=== PATIENT | male | born 1990 | race African-American/Black ===

== ENCOUNTER 2024-01-02 09:02 | Emergency (ER) | payer SELFPAY ==
[2024-01-02 09:30] VITALS: BP 110/70; PULSE 78; RESP 18; TEMP 98; BMI 25.8
[2024-01-02] MEDS ORDERED: ACETAMINOPHEN 325 MG TABLET (FP) ONE (12:07)
[2024-01-02] MEDS: ACETAMINOPHEN 325 MG TABLET (FP) PO ONE (12:10)
== END 2024-01-02 13:27 | disposition home or self-care (01) ==
LOC: JER 09:02
PROC: 2W3FX1Z Immobilization of Left Hand using Splint (ICD-10-PCS; principal; 2024-01-02)
DX: S60.222A Contusion of left hand, initial encounter (principal); S50.311A Abrasion of right elbow, initial encounter; S09.90XA Unspecified injury of head, initial encounter; M54.2 Cervicalgia; R11.0 Nausea; M25.532 Pain in left wrist; Y04.0XXA Assault by unarmed brawl or fight, initial encounter
CPT/HCPCS: 73110-TC-LT-FY; 73130-TC-LT-FY; 99283-25